=== PATIENT | male | born 1970 | race Caucasian/White ===

== ENCOUNTER → 2024-04-28 | Outpatient (CLI) | payer OTHER ==
[~2024-04-28] VITALS: Wt 100.0 kg
[~2024-04-28] MED LIST: ATORVASTATIN CA10 MG PO; CYCLOBENZAPRINE10 M1 PO; Lidocaine 2% Jelly 5 GM TUBE TOP ONE; PRILOSEC 20MG20 MG PO
[2024-04-28 14:12] VITALS: BP 134/88
== END ==
LOC: WOUND 12:56
DX: S61.402D Unspecified open wound of left hand, subsequent encounter (principal)
CPT/HCPCS: 18893; 18895; 18897; A6021; A6197

== ENCOUNTER → 2024-05-05 | Outpatient (CLI) | payer OTHER ==
[~2024-05-05] VITALS: Wt 100.0 kg
[~2024-05-05] MED LIST changes: -Lidocaine 2% Jelly 5 GM TUBE TOP ONE
[2024-05-05 18:11] VITALS: BP 147/86
== END ==
LOC: WOUND 13:40
DX: S61.402D Unspecified open wound of left hand, subsequent encounter (principal)

== ENCOUNTER → 2024-05-05 | Outpatient (CLI) | payer OTHER ==
[~2024-05-05] VITALS: Wt 100.0 kg
[2024-05-05 14:20] VITALS: BP 147/86
== END ==
LOC: RAD 10:37
DX: S67.22XA Crushing injury of left hand, initial encounter (principal)